=== PATIENT | male | born 1995 | race African-American/Black ===

== ENCOUNTER 2020-07-09 18:20 | Inpatient (IN) | payer MEDICAID, OTHER ==
[~2020-07-09] VITALS: Ht 177.8 cm; Wt 74.8 kg
[2020-07-09 19:17] LABS: Basophils # (auto) 0 10 ^3/uL (0-0.2); Basophils % (auto) 0.6 % (0.0-2.0); Eosinophils # (auto) 0 10 ^3/uL (0-0.8); Eosinophils % (auto) 0.2 % (0.0-7.0); Hemoglobin 17.6 g/dL (13.5-17.5); Lymphocytes # (auto) 1.5 10 ^3/uL (0.4-5.4); Lymphocytes % (auto) 19.5 % (10.0-50.0); Mean Corpuscular Hemoglobin 30.3 pg (28.0-32.0); Mean Corpuscular Hgb Conc. 33.1 g/dL (32.0-36.0); Mean Corpuscular Volume 91.4 fL (80.0-100.0); Monocytes # (auto) 0.5 10 ^3/uL (0-1.3); Neutrophils # (auto) 5.6 10 ^3/uL (1.6-8.6); Neutrophils % (auto) 73.7 % (37.0-80.0); Nucleated Red Blood Cells % 0.1 %; Platelet Count (auto) 195 10^3/uL (140-450); Red Cell Distribution Width 15.1 % (11.8-14.3); White Blood Cell 7.6 10^3/uL (4.4-10.8)
[2020-07-09] MEDS ORDERED: MORPHINE SULFATE 4 MG/ML SYR/VIAL IV ONE (19:30)
[2020-07-09] MEDS ORDERED: ONDANSETRON HCL 4 MG/2 ML VIAL IV ONE (19:30)
[2020-07-09] MEDS ORDERED: SODIUM CHLORIDE 0.9% 1,000 ML IV ONE ×3 (19:30→22:00)
[2020-07-09 19:34] LABS: Albumin 5.2 g/dL (3.4-5.0); Calcium 9.7 mg/dL (8.5-10.1); Potassium 4.1 mmol/L (3.5-5.1)
[2020-07-09 19:38] LABS: BUN/Creatinine Ratio 6.7; Bilirubin, Total 1.2 mg/dL (0.2-1.0); Total Protein 9.1 g/dL (6.4-8.2)
[2020-07-09 20:33] LABS: Amylase 101 U/L (25-115); Lipase 70 U/L (73-393)
[2020-07-09] MEDS ORDERED: IOHEXOL 300 MG/ML 100ML BOTTLE IJ ONE (20:44)
[2020-07-09 21:31] LABS: Lactic Acid w/Reflex 2.8 mmol/L (0.4-2.0)
[2020-07-09] MEDS ORDERED: HYDROmorphone HCL 2 MG/ML VL IV ONE (22:00)
[2020-07-09] MEDS ORDERED: PROMETHAZINE HCL 25 MG/ML 1ML IV ONE (22:00)
[2020-07-09] MEDS ORDERED: VANCOMYCIN 1GM/250ML 250 ML IV SCH (22:00)
[2020-07-09] MEDS ORDERED: VANCOMYCIN PER PHARMACY 0 MG IV SCH (22:15)
[2020-07-09] MEDS: VANCOMYCIN 1GM/250ML 250 ML IV SCH (22:23)
[2020-07-09 22:44] LABS: Urine Bacteria NONE SEEN /hpf (None Seen); Urine Blood Negative /uL (Negative); Urine Mucus FEW (None Seen); Urine WBC 1 /hpf (0 - 3)
[2020-07-09] MEDS ORDERED: PROMETHAZINE HCL 25 MG/ML 1ML IV PRN (22:45)
[2020-07-09] MEDS ORDERED: NITROGLYCERIN 0.4 MG SL TAB SL PRN (22:45)
[2020-07-09] MEDS ORDERED: HYDROmorphone HCL 2 MG/ML VL IV PRN (22:45)
[2020-07-09] MEDS ORDERED: MORPHINE SULF INJ 2 MG/ML SYRINGE 1ML IV PRN (22:45)
[2020-07-09 22:52] LABS: Amphetamine Screen, Urine NEGATIVE (NEGATIVE); Barbiturate Scree,Urine NEGATIVE (NEGATIVE); Benzodiazephine Screen, Urine NEGATIVE (NEGATIVE); Cannabinoid Screen, Urine POSITIVE (NEGATIVE); Cocaine Screen, Urine NEGATIVE (NEGATIVE); Opiate Scree,Urine POSITIVE (NEGATIVE); Phencyclidine Screen, Urine NEGATIVE (NEGATIVE)
[2020-07-09 23:14] LABS: Creatine Kinase IFCC 251 U/L (39-308)
[2020-07-09 23:32] LABS: Urine Specific Gravity > 1050 (1.001-1.035)
[2020-07-09 23:34] LABS: Fibrinogen 301 mg/dL (177-375)
[2020-07-09] MEDS: SODIUM CHLORIDE 0.9% 1,000 ML IV SCH (23:39)
[2020-07-09 23:42] LABS: INR 1.23 (0.9-1.15); Partial Thromboplastin Time 33.7 sec (23.0-31.2)
[2020-07-10] MEDS ORDERED: FAMO20TA10 PO (00:36)
[2020-07-10] MEDS ORDERED: OME40GT PO (00:36)
[2020-07-10] MEDS ORDERED: ONDA-144 PO (00:36)
[2020-07-10 01:35] LABS: Basophils # (auto) 0 10 ^3/uL (0-0.2); Basophils % (auto) 0.2 % (0.0-2.0); Eosinophils # (auto) 0 10 ^3/uL (0-0.8); Hematocrit 45.9 % (41.0-53.0); Hemoglobin 15.4 g/dL (13.5-17.5); Lymphocytes # (auto) 0.9 10 ^3/uL (0.4-5.4); Lymphocytes % (auto) 9.9 % (10.0-50.0); Mean Corpuscular Hemoglobin 30.1 pg (28.0-32.0); Mean Corpuscular Hgb Conc. 33.5 g/dL (32.0-36.0); Mean Corpuscular Volume 89.9 fL (80.0-100.0); Monocytes # (auto) 0.3 10 ^3/uL (0-1.3); Monocytes % (auto) 3.2 % (0.0-12.0); Neutrophils # (auto) 7.7 10 ^3/uL (1.6-8.6); Neutrophils % (auto) 86.7 % (37.0-80.0); Nucleated Red Blood Cells % 0.2 %; Platelet Count (auto) 183 10^3/uL (140-450); Red Cell Distribution Width 15.1 % (11.8-14.3); White Blood Cell 8.9 10^3/uL (4.4-10.8)
[2020-07-10 01:54] LABS: Albumin 3.8 g/dL (3.4-5.0); BUN/Creatinine Ratio 6.4; Calcium 8.6 mg/dL (8.5-10.1)
[2020-07-10 01:57] LABS: Bilirubin, Total 0.9 mg/dL (0.2-1.0); Total Protein 7.3 g/dL (6.4-8.2)
[2020-07-10 05:41] VITALS: BP 111/77
[2020-07-10] MEDS: PIPERACILLIN-TAZOB 3.375GM 100 ML IV SCH ×3 (05:52→12:47)
--- NOTE | 2020-07-10 06:43 | NUR ---
END OF SHIFT NOTE WILL ENDORSE PT CARE TO DAY SHIFT RN. PT IS AOX4,NO S/S OF DISTRESS OR SOB
[2020-07-10] MEDS: SODIUM CHLORIDE 0.9% 1,000 ML IV SCH (06:44)
--- NOTE | 2020-07-10 08:00 | NUR ---
OPENING SHIFT NOTE: PATIENT AWAKE RESTING IN BED, A/OX4,ANXIOUS IN BEHAVIOR, "WOULD LIKE TO KNOW WHAT'S GOING ON." RESPIRATIONS EVEN AND UNLABORED. INSTRUCTED ON POC, CALL LIGHT WITHIN REACH, FALL PRECAUTIONS IN PLACE, WILL CONTINUE TO MONITOR.
--- NOTE | 2020-07-10 08:52 | NUR ---
CALL FROM FAMILY: MOM LEIGH UPDATED ON PLAN OF CARE.
[2020-07-10 09:00] VITALS: BP 103/65
[2020-07-10] MEDS: VANCOMYCIN 1GM/250ML 250 ML IV SCH (10:59)
--- NOTE | 2020-07-10 11:15 | NUR ---
WISH TO LEAVE: PATIENT REQUESTING TO LEAVE AMA. UPDATED PATIENT ON HIS RIGHTS TO LEAVE, HOWEVER PATIENT WISHED TO HAVE AN OFF-WORK NOTE. PATIENT HAS NOT BEEN SEEN MY PCP Jenaro MURRAY YET, AND NO DISCHARGE ORDERS HAVE BEEN RECEIVED, SO PATIENT WOULD NEED FOR MD TO ROUND. PATIENT UPSET AND WISHED TO SPEAK WITH HEAD WELL PULLER.
[2020-07-10 13:00] VITALS: BP 110/76
--- NOTE | 2020-07-10 13:46 | NUR ---
CHARGE NURSE SPOKE WITH PATIENT, REINFORCED PATIENT RIGHTS AND HOSPITAL POLICIES. MD MURRAY PAGED FOR ETA ON WHEN HE WILL BE ROUNDING.
--- NOTE | 2020-07-10 13:47 | NUR ---
UPDATED MOM, LEIGH, ON PLAN OF CARE.
--- NOTE | 2020-07-10 14:20 | NUR ---
DISCHARGE: PATIENT GIVEN ALL EDUCATION MATERIALS, PAPERWORK SIGNED AND VERBALIZED UNDERSTANDING. PATIENT'S IV REMOVED MANUAL PRESSURE APPLIED. PATIENT LEFT WITH ALL BELONGINGS, AMBULATED TO PRIVATE AUTO ACCOMPANIED BY SELF WITHOUT INCIDENCES.
[2020-07-10] MEDS ORDERED: METR500T PO (14:52)
[2020-07-10] MEDS ORDERED: LEVO500T21 PO (14:52)
== END 2020-07-10 14:00 | disposition home or self-care (01) | DRG 249 ==
LOC: ER 18:20 → EDBD 18:20 → OVERFLOW 18:21 → CENTRAL 23:40
PROVIDERS: ADMIT Hospitalist; ATTEND Hospitalist
DX: K52.9 Noninfective gastroenteritis and colitis, unspecified (principal); K21.9 Gastro-esophageal reflux disease without esophagitis; G89.4 Chronic pain syndrome; Z83.3 Family history of diabetes mellitus; Z82.61 Family history of arthritis; Z88.6 Allergy status to analgesic agent; Z88.5 Allergy status to narcotic agent
CPT/HCPCS: 36415; 36600; 71045; 74177; 80053; 80307; 81001; 82150; 82550; 82805; 83605; 83690; 84484; 85025; 85379; 85384; 85610; 85730; 87040; 99291; G0378; J2405; J2543

== ENCOUNTER 2020-07-11 03:51 | Emergency (ER) | payer MEDICAID ==
[~2020-07-11] VITALS: Ht 177.8 cm; Wt 72.6 kg
[~2020-07-11 03:51] MED LIST: FAMO20TA10 PO; LEVO500T21 PO; METR500T PO; OME40GT PO; ONDA-144 PO
[2020-07-11 04:20] VITALS: BP 161/98
== END 2020-07-11 06:39 | disposition left against medical advice (07) ==
LOC: EDUNIT# 03:51 → EDBD 03:51 → ER 03:56
DX: R10.31 Right lower quadrant pain (principal); K29.70 Gastritis, unspecified, without bleeding; Z53.21 Procedure and treatment not carried out due to patient leaving prior to being seen by health care provider

== ENCOUNTER 2020-07-11 13:46 | Emergency (ER) | payer MEDICAID ==
[~2020-07-11] VITALS: Ht 177.8 cm; Wt 72.6 kg
[2020-07-11 14:01] VITALS: BP 128/88
== END 2020-07-11 15:19 | disposition left against medical advice (07) ==
LOC: EDBD 13:46 → ER 13:46
DX: R10.9 Unspecified abdominal pain (principal); Z53.21 Procedure and treatment not carried out due to patient leaving prior to being seen by health care provider

== ENCOUNTER 2020-07-14 17:20 | Inpatient (IN) | payer MEDICAID ==
[~2020-07-14] VITALS: Ht 177.8 cm; Wt 73.6 kg
[2020-07-14] MEDS ORDERED: ONDANSETRON HCL 4 MG/2 ML VIAL ONE (17:36)
[2020-07-14] MEDS ORDERED: ONDANSETRON HCL 4 MG/2 ML VIAL IV ONE (17:45)
[2020-07-14 17:52] LABS: Basophils # (auto) 0.1 10 ^3/uL (0-0.2); Basophils % (auto) 0.8 % (0.0-2.0); Eosinophils # (auto) 0 10 ^3/uL (0-0.8); Eosinophils % (auto) 0.4 % (0.0-7.0); Hematocrit 48.5 % (41.0-53.0); Hemoglobin 16.4 g/dL (13.5-17.5); Lymphocytes # (auto) 2.6 10 ^3/uL (0.4-5.4); Lymphocytes % (auto) 28.1 % (10.0-50.0); Mean Corpuscular Hemoglobin 30.4 pg (28.0-32.0); Mean Corpuscular Hgb Conc. 33.8 g/dL (32.0-36.0); Mean Corpuscular Volume 89.8 fL (80.0-100.0); Monocytes # (auto) 0.7 10 ^3/uL (0-1.3); Monocytes % (auto) 7.1 % (0.0-12.0); Neutrophils # (auto) 5.9 10 ^3/uL (1.6-8.6); Neutrophils % (auto) 63.6 % (37.0-80.0); Nucleated Red Blood Cells % 0.2 %; Platelet Count (auto) 183 10^3/uL (140-450); Red Blood Cells 5.41 10^6/uL (4.5-5.90); Red Cell Distribution Width 14.7 % (11.8-14.3); White Blood Cell 9.3 10^3/uL (4.4-10.8)
[2020-07-14 18:16] LABS: Albumin 4.5 g/dL (3.4-5.0); Calcium 9.4 mg/dL (8.5-10.1); Potassium 3.5 mmol/L (3.5-5.1)
[2020-07-14 18:19] LABS: BUN/Creatinine Ratio 7.3; Bilirubin, Total 2.1 mg/dL (0.2-1.0); Total Protein 8.3 g/dL (6.4-8.2)
[2020-07-14] MEDS ORDERED: PROMETHAZINE HCL 25 MG/ML 1ML IV PRN (19:45)
[2020-07-14] MEDS ORDERED: SODIUM CHLORIDE 0.9% 1,000 ML IVB ONE (19:45)
[2020-07-14 20:06] LABS: Magnesium 2.6 mg/dL (1.6-2.6)
[2020-07-14] MEDS ORDERED: PANTOPRAZOLE 40 MG/10 ML VIAL INJ IV ONE (21:30)
[2020-07-14 22:15] LABS: Urine Bacteria FEW /hpf (None Seen); Urine Blood 1+ /uL (Negative); Urine Specific Gravity 1.011 (1.001-1.035); Urine Sperm PRESENT /hpf (None Seen); Urine WBC 18 /hpf (0 - 3)
[2020-07-14 22:39] LABS: Amphetamine Screen, Urine NEGATIVE (NEGATIVE); Barbiturate Scree,Urine NEGATIVE (NEGATIVE); Benzodiazephine Screen, Urine NEGATIVE (NEGATIVE); Cannabinoid Screen, Urine POSITIVE (NEGATIVE); Cocaine Screen, Urine NEGATIVE (NEGATIVE); Phencyclidine Screen, Urine NEGATIVE (NEGATIVE)
[2020-07-14] MEDS ORDERED: NITROGLYCERIN 0.4 MG SL TAB SL PRN (22:45)
[2020-07-14] MEDS ORDERED: ONDANSETRON HCL 4 MG/2 ML VIAL IV PRN (22:45)
[2020-07-14] MEDS ORDERED: SODIUM CHLORIDE 0.9% 1,000 ML IV ONE (22:45)
[2020-07-14] MEDS ORDERED: MORPHINE SULF INJ 2 MG/ML SYRINGE 1ML IV PRN ×2 (22:45)
[2020-07-14 22:46] LABS: Opiate Scree,Urine NEGATIVE (NEGATIVE)
[2020-07-14] MEDS ORDERED: cefTRIAXone 1GM/50ML D5W 50 ML IV ONE (23:00)
--- NOTE | 2020-07-15 00:11 | NUR ---
tele admit from ed pt arrived via wheelchair on room air awake, alert and oriented x4. no distress noted or expressed. pt able to transfer to bed without issue. pt oriented to this nurse, room, bed control use of call light. pt updated on plan of care, aware of NPO status. pt bed locked, low and 2x rails up. call light in reach. this nurse to round q1hr and prn. pt encouraged to call as needed.
[2020-07-15 00:13] VITALS: BP 117/65
[2020-07-15] MEDS: MORPHINE SULF INJ 2 MG/ML SYRINGE 1ML IV PRN ×3 (04:55→18:32)
[2020-07-15 05:00] VITALS: BP 145/74
[2020-07-15] MEDS ORDERED: MORPHINE SULF INJ 2 MG/ML SYRINGE 1ML IV PRN (05:00)
[2020-07-15] MEDS ORDERED: ONDANSETRON HCL 4 MG/2 ML VIAL IV PRN (05:00)
[2020-07-15] MEDS ORDERED: NITROGLYCERIN 0.4 MG SL TAB SL PRN (05:00)
[2020-07-15] MEDS ORDERED: SODIUM CHLORIDE 0.9% 1,000 ML IV ONE (05:00)
[2020-07-15] MEDS ORDERED: PROMETHAZINE HCL 25 MG/ML 1ML IV PRN (05:00)
[2020-07-15 08:00] VITALS: BP 124/81
[2020-07-15] MEDS ORDERED: cefTRIAXone 1GM/50ML D5W 50 ML IV SCH (10:30)
[2020-07-15] MEDS ORDERED: PANTOPRAZOLE 40 MG/10 ML VIAL INJ IV SCH (10:45)
[2020-07-15 12:00] VITALS: BP 130/73
[2020-07-15] MEDS ORDERED: PANTOPRAZOLE 40 MG TAB PO SCH (13:00)
[2020-07-15] MEDS ORDERED: ALUM & MAG HYDROX-SIMETH LIQ(MAALOX) 30 ML PO ONE (13:00)
--- NOTE | 2020-07-15 13:40 | NUR ---
TOLERATED A SANDWICH WELL. NO NAUSEA OR VOMITING. ASKING TO BE DISCHARGED TODAY.
--- NOTE | 2020-07-15 14:55 | NUR ---
CALLED RX TO [facility] PROTONIX 40 MG BY MOUTH ONCE A DAY FOR 30 DAYS AND KEFLEX 500 MG BY MOUTH 3 TIMES A DAY FOR 5 DAYS.
--- NOTE | 2020-07-15 19:13 | NUR ---
Discharge instructions given as ordered. Encourage to follow up with PMD as instructed. All questions and concerns addressed. Patient verbalized understanding. Medication reconciliation form completed and copy given to patient. IV removed with catheter intact, pressure dressing applied. Telemetry unit returned to ICU. Patient taken to vehicle via wheelchair with all personal belongings, accompanied by staff . No distress noted at time of departure.
== END 2020-07-15 19:13 | disposition home or self-care (01) | DRG 249 ==
LOC: ER 17:20 → EDBD 17:20 → TELE-CENTR 17:21 → ER 23:40
PROVIDERS: ADMIT Internal Medicine; ATTEND Internal Medicine
DX: R11.15 Cyclical vomiting syndrome unrelated to migraine (principal); F12.90 Cannabis use, unspecified, uncomplicated; E86.0 Dehydration; N17.9 Acute kidney failure, unspecified; Z88.5 Allergy status to narcotic agent; Z82.49 Family history of ischemic heart disease and other diseases of the circulatory system; Z88.8 Allergy status to other drugs, medicaments and biological substances; N39.0 Urinary tract infection, site not specified
CPT/HCPCS: 36415; 74176; 80053; 80307; 81001; 82150; 83690; 83735; 85025; C9113; G0378; J0696; J2405

== ENCOUNTER 2021-06-17 18:35 | Emergency (ER) | payer MEDICAID ==
[~2021-06-17] VITALS: Ht 177.8 cm; Wt 72.6 kg
[2021-06-17 18:35] VITALS: BP 116/74
[~2021-06-17 18:35] MED LIST changes: -LEVO500T21 PO; +LEVO500T31 PO
[2021-06-17] MEDS ORDERED: SODIUM CHLORIDE 0.9% 1,000 ML IVB ONE (19:00)
[2021-06-17] MEDS ORDERED: ONDANSETRON HCL 4 MG/2 ML VIAL IV ONE (19:00)
[2021-06-17] MEDS ORDERED: MORPHINE SULFATE 4 MG/ML SYR/VIAL IV ONE (19:00)
[2021-06-17 20:11] LABS: Basophils # (auto) 0.1 10 ^3/uL (0-0.2); Eosinophils # (auto) 0 10 ^3/uL (0-0.8); Hematocrit 50.3 % (41.0-53.0); Hemoglobin 16.6 g/dL (13.5-17.5); Lymphocytes # (auto) 0.9 10 ^3/uL (0.4-5.4); Lymphocytes % (auto) 8.7 % (10.0-50.0); Mean Corpuscular Hemoglobin 30.6 pg (28.0-32.0); Mean Corpuscular Hgb Conc. 33.1 g/dL (32.0-36.0); Mean Corpuscular Volume 92.3 fL (80.0-100.0); Monocytes # (auto) 0.2 10 ^3/uL (0-1.3); Monocytes % (auto) 2.2 % (0.0-12.0); Neutrophils # (auto) 9.6 10 ^3/uL (1.6-8.6); Neutrophils % (auto) 88.1 % (37.0-80.0); Nucleated Red Blood Cells % 0.1 %; Red Blood Cells 5.45 10^6/uL (4.5-5.90); White Blood Cell 10.9 10^3/uL (4.4-10.8)
[2021-06-17 20:24] LABS: Albumin 4.6 g/dL (3.4-5.0); Calcium 9.2 mg/dL (8.5-10.1); Potassium 4.1 mmol/L (3.5-5.1)
[2021-06-17 20:27] LABS: BUN/Creatinine Ratio 9.3
[2021-06-17 20:36] LABS: Bilirubin, Total 0.9 mg/dL (0.2-1.0); Total Protein 8.9 g/dL (6.4-8.2)
== END 2021-06-17 20:02 | disposition left against medical advice (07) ==
LOC: EDBD 18:35 → ER 18:36
DX: R10.32 Left lower quadrant pain (principal); R11.2 Nausea with vomiting, unspecified; Z88.6 Allergy status to analgesic agent; Z79.899 Other long term (current) drug therapy; Z88.8 Allergy status to other drugs, medicaments and biological substances
CPT/HCPCS: 36415; 80053; 83690; 85025